=== PATIENT | female | born 2005 | race Caucasian/White ===

== ENCOUNTER 2023-11-15 21:21 | Emergency (ER) | payer OTHER ==
[~2023-11-15] VITALS: Ht 167.6 cm; Wt 68.2 kg
[~2023-11-15 21:21] MED LIST: NAPROSYN500 MG PO
[2023-11-15 21:25] VITALS: TEMP 98
[2023-11-15 22:39] VITALS: BP 116/74; PULSE 66
== END 2023-11-15 22:39 | disposition home or self-care (01) ==
LOC: COL.ER 21:21
DX: S71.111A Laceration without foreign body, right thigh, initial encounter (principal); Z23 Encounter for immunization; W22.8XXA Striking against or struck by other objects, initial encounter; Y92.009 Unspecified place in unspecified non-institutional (private) residence as the place of occurrence of the external cause